=== PATIENT | female | born 1995 | race Caucasian/White ===

== ENCOUNTER 2021-10-23 00:17 | Day surgery (SDC) | payer OTHER, SELFPAY ==
[2021-10-15 13:43] VITALS: BMI 33.5
--- NOTE | 2021-10-15 14:50 | SUR.PREOP ---
Report to the Outpatient Waiting Room, entrance under the green pavilion located off [facility], at time _1130 on date _10/23/21 . OR Time: __1330 . If your surgery time is changed we will call you on 10/22/21 afternoon - You and your visitor will be asked a series of questions to screen for COVID 19 for your protection. - Only one visitor is allowed at this time. - The patient visitor is requested to leave or wait in car when not with patient. - A mask is required within the hospital. Patients may have clear liquids (water, carbonated beverages, clear teas, apple juice) until 3 hours prior to surgery with a maximum of 20 ounces. - No food from midnight until time of surgery - Take the following medications with a SIP of water the morning of surgery: __n/a Medications to discontinue per physician n/a Date to take last dose Please no make-up, nail italian, hairspray, perfume, deodorant, or body powder the day of surgery. No jewelry (including any body piercings) or valuables the day of surgery, leave them at home. Please take a shower or bath the night before, or the morning of, surgery with an antibacterial soap. Wear comfortable, loose fitting clothing. Children are encouraged to wear pajamas. - Jewelry must be removed prior to entering the operating room. Rings and piercings that are not removed may be cut off. - The hospital will not accept responsibility for valuables. - Please leave all valuables, including medications, at home the day of surgery. If you are going home after surgery, a licensed class a regional drivers must drive you home. - NO public transportation without another adult. - We recommend that an adult stay with you for 24 hours following discharge. - We also recommend that you do not drive, make important decision, drink alcoholic beverages, or take any drugs that were not prescribed by your health care provider for at least 24 hours after your discharge time. Follow any additional instructions given to you from your surgeon. ASK YOUR DOCTOR ABOUT A PRESCRIPTION FOR YOUR LABS If you or anyone in your household have experienced Covid symptoms in the past week, please notify your surgeon or the nurse liaison at the phone number below for possible testing. Telephone instructions given to ___JOSSUE and asked if any additional questions and then verbalized understanding. Patient advised to call surgeon office or pre surgery nurse liaison [phone] if any additional questions.
[2021-10-23] VITALS (10 sets, daily range): BP systolic 108–125; BP diastolic 49–93; PULSE 49–89; RESP 14–22; TEMP 36–36.5; O2SAT 97–100
--- NOTE | 2021-10-23 11:43 | PM.IMHP ---
H&P: HPI History of Present Illness Date/Time: 10/23/21 11:43 Chief Complaint: I'm here to have my tubes taken out Narrative: patient presents with undesired fertility Review of Systems Review of Systems: All systems reviewed & are unremarkable except as noted in HPI and below PMFSH Social History Social History Smoking packs per day: 0.5 Smoking cigarettes per day: 10.0 Years smoked: 1 Smoking pack-years: 0.50 Tobacco type: cigarettes Alcohol intake: never Substance use type: marijuana Last use: 07/2019 Living arrangements: with family Spiritual care concerns: No Meds Home Medications and Allergies Home Medications Medication Instructions Recorded Confirmed Type No Home Medications 10/15/21 10/15/21 History Allergies Allergy/AdvReac Type Severity Reaction Status Date / Time ANTIBIOTIC AdvReac Severe Other Uncoded 10/15/21 14:24 Exam Const: General: comfortable and no acute distress Eyes: General: appearance normal, both eyes and all related structures Resp: Effort & Inspection: normal respiratory effort Auscultation: clear to auscultation bilaterally Cardio: Rate: regular rate Rhythm: regular rhythm GI: GI Palp: Yes Soft to palpation Auscultation: normal bowel sounds Skin: General skin exam: normal color and no rashes or lesions noted Neuro: General: gait normal Speech: normal speech Motor exam (neuro): 5/5 motor strength present throughout Psych: Mental Status: mental status grossly normal Assessment and Plan Assessment and plan (1) Sterilization: Code(s): Z30.2 - Encounter for sterilization Status: Acute Plan Undesired fertility Bilateral salpingectomy
[2021-10-23] MEDS: LACTATED RINGERS 1,000 ML 30 ML IV CONT ×2 (12:30→14:43)
--- NOTE | 2021-10-23 13:03 | WPDHPUPDATE1 ---
History and Physical Update Update Date/Time: 10/23/21 13:03 History and Physical has been reviewed, including an updated exam of the patient. There are NO changes in the patient's condition. Risks, benefits, and alternatives have been discussed and questions answered. Patient agrees to proceed with procedure.
--- NOTE | 2021-10-23 13:10 | P.PNAN_ITS ---
Anes - Initial Pre Proc Eval Procedure: Operation Date: 10/23/21 13:30 Proposed Procedures p Diagnostic Laparoscopy, Bilateral Salpingectomy - Sandy Borges DO Date/Time: 10/23/21 13:10 Surgeon: Sandy Borges DO Pre Op Diagnosis: desires sterility Patient Data Age: 25 Gender: F Height: 1.56 m Weight: 82 kg Allergies Allergy/AdvReac Type Severity Reaction Status Date / Time adhesive tape Allergy Intermediate Hives Verified 10/23/21 13:04 agomelatine Allergy Intermediate Hives Verified 10/23/21 13:04 amoxicillin [From Augmentin] Allergy Intermediate Hives Verified 10/23/21 13:04 aspirin Allergy Intermediate Hives Verified 10/23/21 13:04 benzonatate Allergy Intermediate Hives Verified 10/23/21 13:04 cefaclor [From Ceclor] Allergy Intermediate Hives Verified 10/23/21 13:04 ciprofloxacin Allergy Intermediate Hives Verified 10/23/21 13:04 clavulanic acid Allergy Intermediate Hives Verified 10/23/21 13:04 [From Augmentin] diphenhydramine Allergy Intermediate Hives Verified 10/23/21 13:04 [From Benadryl] gentamicin Allergy Intermediate Hives Verified 10/23/21 13:04 hydrocodone Allergy Intermediate Hives Verified 10/23/21 13:04 ibuprofen Allergy Intermediate Hives Verified 10/23/21 13:04 oxycodone Allergy Intermediate Hives Verified 10/23/21 13:04 Penicillins Allergy Intermediate Hives Verified 10/23/21 13:04 prednisone Allergy Intermediate Hives Verified 10/23/21 13:04 Sulfa (Sulfonamide Allergy Intermediate Hives Verified 10/23/21 13:04 Antibiotics) Home Medications Medication Instructions Recorded Confirmed Type No Home Medications 10/15/21 10/15/21 History Patient hx anesthesia problems: none Family hx anesthesia problems: none Results Review: All pre-operative results and documents have been reviewed as part of the pre- operative evaluation. [facility] Social History Social History Smoking packs per day: 0.5 Smoking cigarettes per day: 10.0 Years smoked: 1 Smoking pack-years: 0.50 Tobacco type: cigarettes Alcohol intake: never Substance use type: marijuana Last use: 07/2019 Living arrangements: with family Spiritual care concerns: No Anes - Eval Final PreProcedure Day of Procedure 10/23/21 13:10 Patient weight: overweight Heart: regular rate and rhythm Lungs: clear to auscultation Airway: Mallampati scale class II Neurological: alert and oriented Last oral intake: >/= 8 hours Emergent: no Anesthetic plan: proceed Anesthesia type and monitoring: general ETT and standard monitoring Results Review: All pre-operative results and documents have been reviewed as part of the pre- operative evaluation. Informed Consent: The patient's anesthetic plan and its attendant risks and benefits were discussed with the patient/family/POA. Questions were solicited and answers provided to the satisfaction of the patient/family/POA.
[2021-10-23] MEDS: ACETAMINOPHEN 500 MG TABLET 1000 MG PO (13:30)
[2021-10-23] MEDS: SCOPOLAMINE 1.5 MG PATCH TRANSDERM (13:45)
[2021-10-23] MEDS: BUPIVACAINE/EPINEPHRINE 0.25% 50 ML VIAL INFILTRATE (13:52)
--- NOTE | 2021-10-23 14:16 | W.PM.PROC2 ---
Procedure Note - Detailed Date of Procedure 10/23/21 Pre-op Diagnosis Undesired fertility Post-op Diagnosis Same Procedure Performed Diagnostic laparoscopy, bilateral salpingectomy Surgeon Sandy Borges DO [employer] [place] Indications Undesired fertility Findings Normal appearing vulva and vaginal canal. Small cervix. Internally, the bowel appeared grossly normal. There were some omental adhesions to the left round ligament and the left adnexa. These were taken down easily. The bladder appeared extremely adhered to the lower uterine segment. The patient ever require further surgery on her uterus or a hysterectomy I would strongly recommend a robotic approach to decrease the risk of complication or bladder injury. Description of Procedure The patient was taken to the operating room where she was placed under general anesthesia. She was prepped and draped in the normal sterile fashion in a dorsal lithotomy position. No preoperative antibiotics were indicated. A time-out was performed. Speculum was placed in the vagina and the cervix was visualized. The anterior lip of the cervix was grasped with a single-tooth tenaculum and an acorn uterine manipulator was introduced. Gloves were changed attention was then turned to the abdomen. The skin below the umbilicus was grasped with 2 penetrating towel clamps. The area was injected and a small incision was made. A Veress needle was introduced and the saline water drop test was performed. Once intraperitoneal placement was confirmed, the abdomen was brought up to a filling pressure of 15 mmHg. The Veress needle was then replaced with a 5 mm Optiview trocar. Survey of the abdomen revealed no evidence of bowel or vascular injury. The patient was then placed in steep Trendelenburg position. Additional trocar sites in the right and left lower quadrants were identified and injected. Small incisions were made and 5 mm trocars were introduced under direct visualization. The epiploica and omental adhesions to the left adnexa were taken down carefully using blunt and sharp dissection. The right tube was then elevated and was cauterized and transected off. It was passed off through the employment assistant port. The left tube was then elevated and cauterized and transected off. It was passed off through the employment assistant port. The left round ligament was adhered to the anterior abdominal wall and this was freed using the LigaSure. All surgical pedicles were reinspected and found to be hemostatic. The instruments were removed and the trocars were taken out. CO2 gas was allowed to escape from the abdomen. The abdominal incisions were closed with subcuticular 4-0 Monocryl and covered with Steri-Strips. Patient was taken to the recovery room in stable condition. All instruments sponge counts were correct at the conclusion of the procedure. Estimated Blood Loss 5 IV Fluids 1,000 Packing No Pathology Yes Complications No immediate complications Condition Stable Disposition PACU
[2021-10-23] MEDS: fentaNYL CITRATE INJ (*CRX) 100 MCG/2 ML VIAL 25 MCG IV PUSH ×4 (14:55→15:36)
[2021-10-23] MEDS: ONDANSETRON INJ 4 MG/2 ML VIAL IV PUSH (16:15)
[2021-10-23] MEDS: NAPROXEN 500 MG TABLET PO (16:29)
== END 2021-10-23 17:17 | disposition home or self-care (01) ==
PROVIDERS: Visit Provider Obstetrics & Gynecology Gynecologic Oncology
PROC: (CPT 49320; principal; 2021-10-23 13:30)
DX: Z30.2 Encounter for sterilization (principal); N73.6 Female pelvic peritoneal adhesions (postinfective); N83.8 Other noninflammatory disorders of ovary, fallopian tube and broad ligament; Z79.82 Long term (current) use of aspirin; Z87.891 Personal history of nicotine dependence; F12.90 Cannabis use, unspecified, uncomplicated
CPT/HCPCS: 58661; 36415; 86850; 86900; 86901; 88302; A9270; J0330; J1100; J2250; J2405; J2704; J3010; J7120